=== PATIENT | female | born 1960 | race Caucasian/White ===

== ENCOUNTER 2017-05-10 05:16 | Day surgery (SDC) | payer OTHER ==
[2017-05-10] VITALS (21 sets, daily range): BP systolic 116–141; BP diastolic 56–86; PULSE 64–82; RESP 17–18; Ht 167.6 cm; Wt 87.1 kg
[~2017-05-10] VITALS: Ht 167.6 cm; Wt 87.1 kg
[2017-05-10] MEDS ORDERED: TURM500C7 PO (05:58)
[2017-05-10] MEDS ORDERED: METO25TA7 PO (05:58)
[2017-05-10] MEDS ORDERED: BUPIVACAINE 0.25% (MPF) 30 ML INJ ONE (06:51)
[2017-05-10] MEDS ORDERED: POLYMYXIN/BACITRACIN 1L IRRIG ONE (06:55)
[2017-05-10] MEDS ORDERED: GLYCOPYRROLATE 0.4 MG INJ ONE (07:40)
[2017-05-10] MEDS ORDERED: NEOSTIGMINE 3 MG/3 ML SYRINGE ONE (07:40)
[2017-05-10] MEDS ORDERED: PROPOFOL 20 ML ONE (07:40)
[2017-05-10] MEDS ORDERED: CEFAZOLIN 1 GM INJ ONE (07:40)
[2017-05-10] MEDS ORDERED: ROCURONIUM 50 MG INJ ONE (07:40)
[2017-05-10] MEDS ORDERED: ONDANSETRON 4 MG INJ ONE ×2 (07:41→09:39)
[2017-05-10] MEDS ORDERED: MIDAZOLAM 1 MG/ML 2 ML INJ ONE (07:41)
[2017-05-10] MEDS ORDERED: FENTAnyl 50 MCG/ML VIAL ONE ×2 (07:41→09:38)
[2017-05-10] MEDS ORDERED: DEXAMETHASONE 4 MG/ML 1 ML INJ ONE (07:42)
[2017-05-10] MEDS ORDERED: SOD CHLORIDE 0.9% 1,000 ML IV SCH (08:00)
[2017-05-10] MEDS ORDERED: CEFAZOLIN 2 GM/50 ML (PMX) 50 ML IVPB SCH (08:00)
[2017-05-10] MEDS ORDERED: HYDROCODONE/APAP (5/325) TAB PO ONE (09:30)
[2017-05-10] MEDS ORDERED: HYDROmorphONE (0.2 MG/ML) 10ML SYG IV ONE (09:39)
[2017-05-10] MEDS ORDERED: MEPERIDINE 25 MG INJ ONE (09:39)
--- NOTE | 2017-05-10 09:39 | OPR ---
Date/Time of Note Date/Time of Note DATE: 05/10/17 TIME: 09:30 Operative Report Procedure Date: May 10, 2017 Preoperative Diagnosis incarcerated incisional hernia Postoperative Diagnosis same Operation Performed 1. laparoscopic incarcerated incisional hernia repair cpt code 02297 2. implantation of abdominal mesh cpt code 31243 3. therapeutic injection of subcutaneous marcaine cpt code 49392 Surgeon: Inocencia WATSON Anesthesia Type: general Estimated Blood Loss: 0 - 10 ml's Specimen: none Grafts/Implants ventrallight ST mesh 15x20 cm Complications: no Indications This is a 56-year-old female with incarcerated incisional hernia. This hernia is located in the infraumbilical incisional site. She required surgical repair. Risks alternatives benefits and percent were discussed the patient. Patient's expressed understanding and consents to the operation. Procedure Description Patient is taken to the OR and prepped and draped in usual sterile fashion. Surgical timeout is performed. IV antibiotics are given. Left upper quadrant 5 mm incision is made transversely with a 15 blade. Using a 5 mm optical trocar optical entry is performed. Pneumoperitoneum is established. Left flank 12 mm optical trocar and left lower quadrant 5 mm optical trochars were placed under direct visualization. Upon initial inspection there is incarcerated hernia with contents. Contents were reduced laparoscopically. The wide hernia defect was identified and closed with interrupted #1 Prolenes using Endo Close and laparoscopic techniques. There was good hemostasis. Underlay coverage with ventral light ST 15 x 20 cm mesh was used. This was affixed to the abdominal wall with secure strap. There was approximately 45 cm of coverage in all directions. There is good hemostasis. Ports removed under direct visualization. Skin was closed using skin giuliana. Therapeutic subcutaneous Marcaine was injected throughout all port sites incision sites. Dry dressings were applied. Inocencia WATSON May 10, 2017 09:39
[2017-05-10] MEDS: HYDROmorphONE (0.2 MG/ML) 10ML SYG IV PRN ×6 (09:52→10:45)
[2017-05-10] MEDS: FENTAnyl 50 MCG/ML VIAL IV PRN ×2 (09:53→10:06)
[2017-05-10] MEDS ORDERED: IPRATROPIUM (NEB) 0.5 MG/2.5 ML AMP HHN PRN (10:00)
[2017-05-10] MEDS ORDERED: hydrALAzine 20 MG INJ IV PRN (10:00)
[2017-05-10] MEDS ORDERED: ONDANSETRON 4 MG INJ IV PRN (10:00)
[2017-05-10] MEDS ORDERED: LABETALOL HCL 20MG INJ IV PRN (10:00)
[2017-05-10] MEDS ORDERED: HYDROmorphONE (0.2 MG/ML) 10ML SYG IV PRN ×2 (10:00)
[2017-05-10] MEDS ORDERED: ALBUTEROL 0.083% (NEB) 2.5 MG/3 ML AMP HHN PRN (10:00)
[2017-05-10] MEDS ORDERED: DIPHENHYDRAMINE 50 MG INJ IV PRN (10:00)
[2017-05-10] MEDS ORDERED: MEPERIDINE 25 MG INJ IV PRN (10:00)
[2017-05-10] MEDS ORDERED: FENTAnyl 50 MCG/ML VIAL IV PRN ×2 (10:00)
[2017-05-10] MEDS ORDERED: TRIMETHOBENZAMIDE 100 MG/ML VIAL IM PRN (10:00)
[2017-05-10] MEDS ORDERED: EPHEDrine SULFATE 50 MG/5 ML SYG IV PRN (10:00)
[2017-05-10] MEDS ORDERED: MIDAZOLAM 1 MG/ML 2 ML INJ IV PRN (10:00)
[2017-05-10] MEDS ORDERED: OXYCODONE/ACETAMINOPHEN (5/325) TAB PO PRN ×2 (10:00)
== END 2017-05-10 13:05 | disposition home or self-care (01) ==
LOC: SDS 05:16
PROVIDERS: ATTEND Surgery
DX: K43.0 Incisional hernia with obstruction, without gangrene (principal); I10 Essential (primary) hypertension
CPT/HCPCS: 49655; C1781; J0690; J1100; J1170; J2250; J2405; J2710; J3010; Z7512; Z7610; J2175